=== PATIENT | female | born 1945 | race Caucasian/White ===

== ENCOUNTER 2020-06-11 18:54 | Inpatient (IN) | payer OTHER ==
[~2020-06-11] VITALS: Ht 152.4 cm; Wt 124.0 kg
[2020-06-11] MEDS ORDERED: DIOVAN160 M1 (19:37)
[2020-06-11] MEDS ORDERED: PLAVIX75 MG (19:38)
[2020-06-11] MEDS ORDERED: TOPROL XL50 M1 (19:38)
[2020-06-11] MEDS ORDERED: METROPOLOL 100 MG (19:40)
[2020-06-11] MEDS ORDERED: NORVASC (19:41)
[2020-06-11] MEDS ORDERED: LIPITOR (19:41)
[2020-06-11] MEDS ORDERED: NEURONTIN800 MG (19:42)
[2020-06-11] MEDS ORDERED: ADULT ASPIRIN81 MG (19:42)
[2020-06-12] MEDS ORDERED: ATORVASTATIN CA10 MG PO (10:44)
[2020-06-12] MEDS ORDERED: METOPROLOL TAR100 MG PO (10:44)
[2020-06-12] MEDS ORDERED: AMLODIPINE BESYL5 MG PO (10:45)
[2020-06-12] MEDS ORDERED: FENOFIBRATE145 MG PO (10:46)
[2020-06-12] MEDS ORDERED: PANTOPRAZOLE SO40 MG PO (10:47)
== END 2020-06-19 14:26 | disposition home or self-care (01) | DRG 419 ==
LOC: ER 18:54 → SURH 06-12 07:15
PROVIDERS: Surgery; ADMIT Internal Medicine; ATTEND Internal Medicine
PROC: BW21ZZZ Computerized Tomography (CT Scan) of Abdomen and Pelvis (ICD-10-PCS; 2020-06-12)
PROC: BW40ZZZ Ultrasonography of Abdomen (ICD-10-PCS; 2020-06-12)
PROC: BF37ZZZ Magnetic Resonance Imaging (MRI) of Pancreas (ICD-10-PCS; 2020-06-12)
PROC: 0FT44ZZ Resection of Gallbladder, Percutaneous Endoscopic Approach (ICD-10-PCS; principal; 2020-06-18 15:00)
DX: K80.10 Calculus of gallbladder with chronic cholecystitis without obstruction (principal); R10.31 Right lower quadrant pain; I10 Essential (primary) hypertension; Z20.828 Contact with and (suspected) exposure to other viral communicable diseases

== ENCOUNTER 2022-12-05 08:46 | Inpatient (IN) | payer OTHER ==
[~2022-12-05] VITALS: Ht 152.4 cm; Wt 55.3 kg
[~2022-12-05 08:46] MED LIST: ADULT ASPIRIN81 MG; AMLODIPINE BESYL5 MG PO; ATORVASTATIN CA10 MG PO; DIOVAN160 M1; FENOFIBRATE145 MG PO; LIPITOR; METOPROLOL TAR100 MG PO; METROPOLOL 100 MG; NEURONTIN800 MG; NORVASC; PANTOPRAZOLE SO40 MG PO; PLAVIX75 MG; TOPROL XL50 M1
[2022-12-11] MEDS ORDERED: AMLODIPINE BESY10 MG PO (11:16)
[2022-12-11] MEDS ORDERED: COZAAR50 MG PO (11:16)
[2022-12-11] MEDS ORDERED: TOPROL XL100 M1 PO (11:17)
[2022-12-11] MEDS ORDERED: CALCIUM 500-VI1 EAC6 PO (11:17)
== END 2022-12-11 17:31 | disposition home or self-care (01) | DRG 444 ==
LOC: ER 08:46 → MEDI 22:03
PROVIDERS: Internal Medicine Gastroenterology; ADMIT Internal Medicine; ATTEND Internal Medicine
PROC: BW28ZZZ Computerized Tomography (CT Scan) of Head (ICD-10-PCS; 2022-12-05)
PROC: BF37ZZZ Magnetic Resonance Imaging (MRI) of Pancreas (ICD-10-PCS; 2022-12-07)
PROC: 0FC98ZZ Extirpation of Matter from Common Bile Duct, Via Natural or Artificial Opening Endoscopic (ICD-10-PCS; principal; 2022-12-10 16:45)
DX: K80.51 Calculus of bile duct without cholangitis or cholecystitis with obstruction (principal); A41.9 Sepsis, unspecified organism; F10.139 Alcohol abuse with withdrawal, unspecified; N17.8 Other acute kidney failure; R44.0 Auditory hallucinations; E87.6 Hypokalemia; I25.10 Atherosclerotic heart disease of native coronary artery without angina pectoris; I11.9 Hypertensive heart disease without heart failure; E80.6 Other disorders of bilirubin metabolism; Z20.822 Contact with and (suspected) exposure to COVID-19

== ENCOUNTER 2022-12-15 12:06 | Inpatient (IN) | payer OTHER ==
[~2022-12-15] VITALS: Ht 152.4 cm; Wt 55.3 kg
[~2022-12-15 12:06] MED LIST changes: +AMLODIPINE BESY10 MG PO; +CALCIUM 500-VI1 EAC6 PO; +COZAAR50 MG PO; +TOPROL XL100 M1 PO
[2022-12-18] MEDS ORDERED: Ursodiol 300MG CAPSU PO (10:56)
[2022-12-18] MEDS ORDERED: METAMUCIL0.4 GM PO (10:57)
[2022-12-18] MEDS ORDERED: PROTONIX20 MG PO (10:57)
== END 2022-12-18 13:36 | disposition home or self-care (01) | DRG 445 ==
LOC: ER 12:06 → MEDJ 21:40
PROVIDERS: ADMIT Internal Medicine; ATTEND Internal Medicine
PROC: CD171ZZ Planar Nuclear Medicine Imaging of Gastrointestinal Tract using Technetium 99m (Tc-99m) (ICD-10-PCS; 2022-12-15)
PROC: BW21YZZ Computerized Tomography (CT Scan) of Abdomen and Pelvis using Other Contrast (ICD-10-PCS; 2022-12-15)
PROC: 30233N1 Transfusion of Nonautologous Red Blood Cells into Peripheral Vein, Percutaneous Approach (ICD-10-PCS; 2022-12-15)
PROC: 0DJ08ZZ Inspection of Upper Intestinal Tract, Via Natural or Artificial Opening Endoscopic (ICD-10-PCS; principal; 2022-12-17)
DX: K80.31 Calculus of bile duct with cholangitis, unspecified, with obstruction (principal); K62.5 Hemorrhage of anus and rectum; D64.9 Anemia, unspecified; I10 Essential (primary) hypertension